=== PATIENT | male | born 1965 | race Caucasian/White ===

== ENCOUNTER → 2019-12-23 | Outpatient (CLI) | payer BC ==
[~2019-12-23] MED LIST: IOPAMIDOL 370 MG/ML 200 ML INFUS..BTL INJ ONE; LEXAPRO10 MG PO; LISINOPRIL20 MG PO; SODIUM CHLORIDE 0.9% 250ML 250 ML ONE; SODIUM CHLORIDE 0.9% 500ML 500 ML ONE; VALTREX500 MG PO; ZYRTEC10 M3 PO
[2019-12-23 08:38] LABS: CREATININE, SERUM 1.39 mg/dL (0.72-1.25)
--- NOTE | 2019-12-23 15:28 | Diagnostic Imaging Report ---
EXAM: CT Abdomen and Pelvis WITHOUT and WITH intravenous contrast - Hematuria protocol INDICATION: Gross hematuria COMPARISON: None. TECHNIQUE: Abdomen and pelvis were scanned utilizing a multidetector helical scanner from the lung base to the pubic symphysis before and after administration of IV contrast. Coronal and sagittal reformations were obtained. Hematuria protocol was used. Scan was performed prior to contrast administration and during portal venous phase. IV CONTRAST: 100 mL of Isovue 370 ORAL CONTRAST: None COMPLICATIONS: None RADIATION DOSE: Total DLP: 1417 mGy*cm Dose modulation, iterative reconstruction, and/or weight based adjustment of the mA/kV was utilized to reduce the radiation dose to as low as reasonably achievable. FINDINGS: LOWER THORAX: Normal. HEPATOBILIARY: No focal liver lesion. No biliary ductal dilation. Unremarkable gallbladder. SPLEEN: No splenomegaly. PANCREAS: No focal masses or ductal dilatation. ADRENALS: No adrenal nodules. KIDNEYS/URETERS: 3 mm nonobstructive left upper pole renal calculus. 2 mm nonobstructive right lower pole renal calculus. No hydronephrosis or hydroureter. Delayed excretory phase images demonstrate contrast opacification of nearly the entire course of both ureters with the exception of the most distal portions. No filling defects to suggest endothelial mass lesion. No solid renal mass lesion. PELVIC ORGANS/BLADDER: No mass, wall thickening, or calculus. PERITONEUM / RETROPERITONEUM: No free air or fluid. LYMPH NODES: No lymphadenopathy. VESSELS: Unremarkable. GI TRACT: Prominent sigmoid diverticulosis. No CT evidence of diverticulitis. No abnormal bowel thickening. No bowel obstruction. BONES AND SOFT TISSUES: No acute osseous injury. No suspicious lytic or blastic lesions. Postoperative findings of posterior decompression and fusion at L4-S1. IMPRESSION: 3 mm left upper pole and 2 mm right lower pole nonobstructive renal calculi. No solid renal mass lesion or urothelial mass lesion. Diverticulosis without CT evidence of diverticulitis. Signed by: Rufino Onofre MD on 12/23/2019 3:24 PM
== END ==
LOC: CT 07:43
PROVIDERS: ATTEND Urology
DX: R31.0 Gross hematuria (principal)
CPT/HCPCS: 36415; 74178; 82565; 84520; 96360; J7040; J7050; Q9967

== ENCOUNTER → 2020-06-12 | Outpatient (CLI) | payer BC ==
[~2020-06-12] MED LIST changes: -IOPAMIDOL 370 MG/ML 200 ML INFUS..BTL INJ ONE; -SODIUM CHLORIDE 0.9% 250ML 250 ML ONE; -SODIUM CHLORIDE 0.9% 500ML 500 ML ONE
== END ==
LOC: RAD 08:38
PROVIDERS: ATTEND Urology
DX: N20.0 Calculus of kidney (principal)
CPT/HCPCS: 74018

== ENCOUNTER → 2021-06-28 | Outpatient (CLI) | payer BC | LOC: US 08:57 | PROVIDERS: ATTEND Urology | DX: N20.0 Calculus of kidney (principal) | CPT/HCPCS: 76770 ==